=== PATIENT | female | born 1975 | race African-American/Black ===

== ENCOUNTER → 2020-05-15 | Outpatient (CLI) | payer MEDICAID ==
[~2020-05-15] MED LIST: BLACK SEED PO; COLLAGEN COMPLEX PO; MULT-996 PO
== END | disposition home or self-care (01) ==
LOC: LAB 07:52
PROVIDERS: ATTEND Obstetrics & Gynecology
DX: Z01.818 Encounter for other preprocedural examination (principal); Z11.59 Encounter for screening for other viral diseases
CPT/HCPCS: C9803; U0003

== ENCOUNTER 2020-05-19 09:11 | Inpatient (IN) | payer MEDICAID ==
[~2020-05-19] VITALS: Ht 190.5 cm; Wt 122.5 kg
[2020-05-19 10:11] LABS: CHLORIDE 107 mEq/L (98-107)
[2020-05-19 10:14] LABS: CLARITY URINE CLEAR (CLEAR); COLOR URINE DK YELLOW (YELLOW); KETONES URINE NEGATIVE (NEGATIVE); LEUKOCYTE ESTERASE URINE NEGATIVE (NEGATIVE); NITRITE URINE NEGATIVE (NEGATIVE); OCCULT BLOOD URINE 1+ (NEGATIVE); PROTEIN URINE NEGATIVE (NEGATIVE); UROBILINOGEN URINE 0.2 E.U./dL (0.2-1.0)
[2020-05-19 10:17] LABS: PROTHROMBIN TIME 10.4 sec (9.6-11.0)
[2020-05-19 10:20] LABS: UCG SCREEN NEGATIVE
[2020-05-19 10:31] LABS: BASOPHILS % 0.9 % (0.0-2.0); EOSINOPHILS % 3.2 % (0.0-5.0); HEMATOCRIT. 34.5 % (36.0-48.0); HEMOGLOBIN. 11.2 g/dL (12.0-16.0); LYMPHOCYTES % 43.6 % (20.0-50.0); MEAN CORPUSCULAR HEMOGLOBIN 25.4 pg (28.0-32.0); MEAN CORPUSCULAR VOLUME 78.6 fL (81.0-99.0); MEAN PLATELET VOLUME 9.3 fl (7.4-10.4); MONOCYTES % 7.3 % (2.0-8.0); PLATELET 252 x1000/uL (130-400); RED BLOOD CELL COUNT 4.39 mill/uL (4.2-5.4); RED CELL DISTRIBUTION WIDTH 18.7 % (11.6-14.6)
[2020-05-19] MEDS ORDERED: BLACK SEED PO (11:37)
[2020-05-19] MEDS ORDERED: MULT-996 PO (11:37)
[2020-05-19] MEDS ORDERED: COLLAGEN COMPLEX PO (11:37)
[2020-05-19] MEDS ORDERED: LACTATED RINGERS 1,000 ML IV SCH (12:30)
[2020-05-19] MEDS ORDERED: BUPIVACAINE HCL/PF 0.5% (5MG/ML) 10ML ONE (12:40)
[2020-05-19] MEDS ORDERED: SKIN ADHESIVE 0.7 GM EA TOP ONE (12:41)
[2020-05-19] MEDS ORDERED: SUCCINYLCHOLINE CHLORIDE 200MG/10ML IV ONE (13:22)
[2020-05-19] MEDS ORDERED: FENTANYL CITRATE/PF 50MCG/ML 2ML VIAL ONE (13:22)
[2020-05-19] MEDS ORDERED: ROCURONIUM BROMIDE 10MG/ML VIAL 5ML IV ONE (13:23)
[2020-05-19] MEDS ORDERED: MIDAZOLAM HCL 2 MG/2 ML VIAL ONE (13:23)
[2020-05-19] MEDS ORDERED: PROPOFOL 200MG/20ML VIAL IV ONE (13:23)
[2020-05-19] MEDS ORDERED: CEFAZOLIN SODIUM 1000MG/VIAL ONE (13:26)
[2020-05-19] MEDS ORDERED: DEXAMETHASONE 4MG/ML 1ML VIAL ONE (13:34)
[2020-05-19] MEDS ORDERED: ONDANSETRON HCL 4MG/2ML INJ ONE (13:35)
[2020-05-19] MEDS ORDERED: VECURONIUM BROMIDE 10 MG/VIAL IV ONE (13:50)
[2020-05-19] MEDS ORDERED: EPHEDRINE SULFATE 50MG/ML VIAL ONE (14:10)
[2020-05-19] MEDS ORDERED: HYDROMORPHONE HCL/PF 2MG/ML (OR) ONE (15:15)
[2020-05-19] MEDS ORDERED: ONDANSETRON HCL 4MG/2ML INJ IV PRN ×2 (16:31→17:45)
[2020-05-19] MEDS ORDERED: HYDROCODONE/ACETAMINOPHEN 10/325MG TABLET PO PRN (16:32)
[2020-05-19] MEDS ORDERED: IBUPROFEN 600MG TABLET PO PRN (16:33)
[2020-05-19] MEDS ORDERED: MORPHINE SULFATE 2 MG/ML CPJ (NOT FOR IM USE) IV PRN (16:47)
[2020-05-19 16:50] LABS: BASOPHILS % 0.2 % (0.0-2.0); EOSINOPHILS % 0.2 % (0.0-5.0); HEMATOCRIT. 32.4 % (36.0-48.0); HEMOGLOBIN. 10.6 g/dL (12.0-16.0); LYMPHOCYTES % 18.4 % (20.0-50.0); MEAN CORPUSCULAR HEMOGLOBIN 25.9 pg (28.0-32.0); MEAN CORPUSCULAR VOLUME 79.5 fL (81.0-99.0); MONOCYTES % 2.1 % (2.0-8.0); NEUTROPHILS % 79.1 % (40.0-76.0); PLATELET 240 x1000/uL (130-400); RED BLOOD CELL COUNT 4.08 mill/uL (4.2-5.4); RED CELL DISTRIBUTION WIDTH 18.8 % (11.6-14.6)
[2020-05-19 16:57] LABS: CHLORIDE 110 mEq/L (98-107)
[2020-05-19] MEDS ORDERED: MORPHINE PCA 50MG/50ML IV PRN (17:15)
[2020-05-19] MEDS ORDERED: NALOXONE INJ IV PRN (17:15)
[2020-05-19] MEDS ORDERED: ONDANSETRON INJ IV PRN (17:15)
[2020-05-19] MEDS ORDERED: HYDROMORPHONE HCL/PF 2MG/ML CPJ IV PRN (17:40)
[2020-05-19] MEDS ORDERED: HYDROMORPHONE HCL/PF 2MG/ML CPJ ONE (17:41)
[2020-05-19] MEDS ORDERED: MEPERIDINE HCL/PF 25MG/ML CPJ IV PRN (17:45)
[2020-05-19] MEDS ORDERED: LABETALOL 5MG/ML SYR 20 MG/4 ML SYRINGE IV PRN (17:45)
[2020-05-19 20:00] VITALS: BP 116/60
[2020-05-19] MEDS ORDERED: DIPHENHYDRAMINE 50MG/ML VIAL IV PRN (20:00)
[2020-05-20] VITALS: BP 101/57
[2020-05-20 04:00] VITALS: BP 114/59
[2020-05-20 06:37] LABS: BASOPHILS % 0.3 % (0.0-2.0); EOSINOPHILS % 0.2 % (0.0-5.0); HEMATOCRIT. 31.2 % (36.0-48.0); HEMOGLOBIN. 10.1 g/dL (12.0-16.0); LYMPHOCYTES % 27.3 % (20.0-50.0); MEAN CORPUSCULAR HEMOGLOBIN 25.5 pg (28.0-32.0); MEAN CORPUSCULAR VOLUME 78.8 fL (81.0-99.0); MEAN PLATELET VOLUME 9.4 fl (7.4-10.4); NEUTROPHILS % 63.2 % (40.0-76.0); PLATELET 268 x1000/uL (130-400); RED BLOOD CELL COUNT 3.96 mill/uL (4.2-5.4); RED CELL DISTRIBUTION WIDTH 19.3 % (11.6-14.6)
[2020-05-20 06:58] LABS: CHLORIDE 107 mEq/L (98-107)
[2020-05-20 08:00] VITALS: BP 102/63
[2020-05-20] MEDS: DOCUSATE SODIUM 100MG CAPSULE PO SCH ×2 (09:14→18:08)
[2020-05-20 12:00] VITALS: BP 109/68
[2020-05-20] MEDS: DIPHENHYDRAMINE INJ IV PRN (14:11)
[2020-05-20 16:00] VITALS: BP 113/81
[2020-05-20 20:00] VITALS: BP 118/69
[2020-05-21] VITALS: BP 107/62
[2020-05-21] MEDS: DIPHENHYDRAMINE INJ IV PRN (00:03)
[2020-05-21 04:00] VITALS: BP 114/68
[2020-05-21 08:00] VITALS: BP 114/73
[2020-05-21] MEDS: DOCUSATE SODIUM 100MG CAPSULE PO SCH (09:09)
[2020-05-21 11:00] VITALS: BP 114/73
[2020-05-21 12:00] VITALS: BP 114/73
== END 2020-05-21 13:02 | disposition home or self-care (01) | DRG 519 ==
LOC: OR 09:11 → 6EST 18:32
PROVIDERS: ADMIT Obstetrics & Gynecology; ATTEND Obstetrics & Gynecology
PROC: 0UT90ZZ Resection of Uterus, Open Approach (ICD-10-PCS; principal; 2020-05-19)
PROC: 0UT70ZZ Resection of Bilateral Fallopian Tubes, Open Approach (ICD-10-PCS; 2020-05-19)
PROC: 0UT20ZZ Resection of Bilateral Ovaries, Open Approach (ICD-10-PCS; 2020-05-19)
DX: D25.9 Leiomyoma of uterus, unspecified (principal)
CPT/HCPCS: 36415; 71045; 80048; 80053; 81003; 81025; 85025; 86850; 86900; 88302; 88304; 88305; 93005; J0330; J0690; J1100; J1170; J1200; J2250; J2270; J2405; J2704; J3010; J3490

== ENCOUNTER → 2022-08-11 | Day surgery (SDC) | payer MEDICAID ==
[~2022-08-11] VITALS: Ht 185.4 cm; Wt 104.3 kg
[~2022-08-11] MED LIST changes: +BUPIVACAINE HCL/PF 0.5% (5MG/ML) 10ML ONE; +CELE200C PO; +CYCL10TA21 PO; +FENTANYL CITRATE/PF 50MCG/ML 2ML VIAL ONE; +GABA-290 PO; +GABA-532 PO; +LACTATED RINGERS 1,000 ML IV SCH; +LOSA50TA41 PO; +MIDAZOLAM HCL 2 MG/2 ML VIAL ONE; +PROPOFOL 200MG/20ML VIAL IV ONE; +SKIN ADHESIVE 0.7 GM EA TOP ONE
== END | disposition home or self-care (01) ==
LOC: OR 09:16
PROVIDERS: ATTEND Surgery
DX: D36.7 Benign neoplasm of other specified sites (principal); R22.31 Localized swelling, mass and lump, right upper limb; I10 Essential (primary) hypertension; M19.90 Unspecified osteoarthritis, unspecified site; Z79.899 Other long term (current) drug therapy; Z98.890 Other specified postprocedural states; Z20.822 Contact with and (suspected) exposure to COVID-19; Z88.5 Allergy status to narcotic agent
CPT/HCPCS: 24071; 87426; C9803; J2250; J2704; J3010; J3490; J7030